=== PATIENT | male | born 1990 | race Caucasian/White ===

== ENCOUNTER 2021-05-07 16:34 | Emergency (ER) | payer SELFPAY ==
[2021-05-07 16:45] VITALS: BP 172/91; PULSE 74; RESP 20; TEMP 37.2; O2SAT 100
--- NOTE | 2021-05-07 17:14 | PC.NURSE ---
events specialist in to [facility] i [facility].
--- NOTE | 2021-05-07 17:20 | ED.WOUNDLAC ---
HPI - Wound/Laceration General Chief Complaint: Wound/Laceration Stated Complaint: spider Bite Time Seen by Provider: 05/07/21 16:51 Source: patient and RN notes reviewed Mode of arrival: ambulatory Limitations: no limitations History of Present Illness HPI narrative: Patient presents today complaining of an abscess to the right forearm x4 days. History of boils on his chest and axilla in the past. Nothing that has had to be lanced by a professional, but patient has lanced them on his own. Denies known history of MRSA. Denies recent antibiotic use. Related Data Allergies Allergy/AdvReac Type Severity Reaction Status Date / Time No Known Allergies Allergy Verified 05/07/21 16:41 Review of Systems Review of Systems: CONSTITUTIONAL: Denies body aches, fever, chills, or sweats. EYES: Denies visual changes, redness, or discharge. ENT: Denies rhinorrhea, congestion, sore throat, or otalgia. CARDIOVASCULAR: Denies chest pain, palpitations, or edema. RESPIRATORY: Denies cough or dyspnea. GASTROINTESTINAL: Denies abdominal pain, nausea, vomiting, or diarrhea. GENITOURINARY: Denies dysuria or hematuria. SKIN: Denies rash, itching. + Abscess to right forearm MUSCULOSKELETAL: Denies back pain, joint pain, or myalgia. NEUROLOGIC: Denies headache, numbness, tingling, or weakness. PSYCH: Denies depression or anxiety. PMFSH Comments At time of signature, I have reviewed and agree with nursing past medical, surgical, social and family history unless otherwise noted. Please see nursing chart for further information. There is no relevant family history pertinent to the presenting complaint Exam Narrative: GENERAL: Well-appearing, well-nourished, and in no acute distress. HEAD: Normocephalic, atraumatic. EYES: EOMI. No redness or drainage. Conjunctivae normal. ENT: Mucous membranes pink and moist. NECK: Normal AROM. CHEST: No respiratory distress. EXTREMITIES: Normal range of motion. No edema. SKIN: Warm, dry, no rash. Capillary refill normal. Normal skin turgor. 4 cm round erythematous fluctuant lesion to the right posterior forearm with tiny scab in the center. NEURO: No focal deficits. Alert and oriented x3. Gait steady. PSYCH: Normal affect. No signs of depression or anxiety. Course Vital Signs Vital signs: Vital Signs Temperature 98.9 F 05/07/21 16:45 Pulse Rate 74 05/07/21 16:45 Respiratory Rate 20 05/07/21 16:45 Blood Pressure 172/91 H 05/07/21 16:45 Pulse Oximetry 100 05/07/21 16:45 Temperature 98.9 F 05/07/21 16:45 Pulse Rate 74 05/07/21 16:45 Respiratory Rate 20 05/07/21 16:45 Blood Pressure 172/91 H 05/07/21 16:45 Pulse Oximetry 100 05/07/21 16:45 Reviewed. Pt has been instructed to follow up with his PCP regarding his elevated blood pressure today. Procedures Abscess I/D upper extremity: Date of Incision: 05/07/21 Time of Incision: 17:00 Side (if applicable): right (Forearm) Local Anesthetic: lidocaine 1% Amount of anesthesia used (mL): 2 Technique: incised with #11 blade Amount of fluid expressed (mL): 2 Irrigation: No Packing used?: none I&D Results: Pus and Blood Abcess I&D Additional Comments: dressed with telfa and coban MDM - Wound/Laceration Differential Diagnosis Differential diagnosis: Likely abscess and other (Cellulitis) Critical Care Time Critical Care Time Critical Care Time: No Discharge Plan Discharge Clinical Impression: Abscess of forearm, right Patient Disposition: Home, Self-Care Condition: Stable Instructions: Antibiotic Form, Abscess (ED), Abscess Incision and Drainage (DC) Additional Instructions: Take the Bactrim as prescribed until gone. Do not wash the arm for 24 hours to allow scab to start forming. After this do not wash with alcohol, peroxide, do not apply antibiotic ointment. Take Tylenol or ibuprofen for pain. Follow-up with your doctor if sympto
== END 2021-05-07 17:30 | disposition home or self-care (01) ==
PROVIDERS: Emergency Provider Nurse Practitioner
DX: L02.413 Cutaneous abscess of right upper limb (principal)
CPT/HCPCS: 10060; 99203; G0463

== ENCOUNTER 2021-12-28 08:48 | Emergency (ER) | payer SELFPAY ==
[2021-12-28 09:01] VITALS: BP 174/94; PULSE 85; RESP 16; TEMP 36.2; O2SAT 99
--- NOTE | 2021-12-28 09:13 | ED.SKABFB ---
HPI - Skin/Abscess/Foreign Bdy General Chief complaint: Skin/Abscess/Foreign Body Stated complaint: Bites on back of neck and chest Time Seen by Provider: 12/28/21 09:14 Source: patient Mode of arrival: ambulatory Limitations: no limitations History of Present Illness HPI narrative: 31-year-old male presented for complaint of rash to mid chest and the bottom of the hairline on the back of his neck. He states he has had intermittent episodes of this for about 4 years. He has recently been taking his friend's antibiotic approximately 1 tablet a week and endorses no improvement in symptoms. He has applied Neosporin as well. He endorses he works outside and sweats often. Denies any burning sensation but endorses the lesions are tender at times. No other sites of lesions noted. Denies nausea, vomiting, fevers or chills. MD complaint: rash Related Data Allergies Allergy/AdvReac Type Severity Reaction Status Date / Time No Known Allergies Allergy Verified 12/28/21 09:10 Review of Systems Review of Systems: CONSTITUTIONAL: Denies body aches, fever, chills, or sweats. EYES: Denies visual changes, redness, or discharge. ENT: Denies rhinorrhea, congestion, sore throat, or otalgia. CARDIOVASCULAR: Denies chest pain, palpitations, or edema. RESPIRATORY: Denies cough or dyspnea. GASTROINTESTINAL: Denies abdominal pain, nausea, vomiting, or diarrhea. GENITOURINARY: Denies dysuria or hematuria. SKIN: rash, itching, wounds. MUSCULOSKELETAL: Denies back pain, joint pain, or myalgia. NEUROLOGIC: Denies headache, numbness, tingling, or weakness. PSYCH: Denies depression or anxiety. PMFSH Comments At time of signature, I have reviewed and agree with nursing past medical, surgical, social and family history unless otherwise noted. Please see nursing chart for further information. There is no relevant family history pertinent to the presenting complaint Exam Narrative: GENERAL: Well-appearing HEAD: Normocephalic, atraumatic. EYES: conjunctivae clear, and EOMI. ENT: Mucous membranes moist. NECK: Supple. No lymphadenopathy CHEST: Clear to auscultation. No respiratory distress. HEART: Regular rate and rhythm. SKIN: Warm, dry. Patches of erythematous papules and open lesions across base of skull/hairline and mid chest; most lesions up to 0.5cm diameter, c/w folliculitis; no active drainage no abscesses; nontender NEURO: Alert and oriented x3. PSYCH: Normal mood and affect Course Course Emergency Course: Patient is aware of diagnosis, understands and agrees to treatment plan. Anticipatory guidance given. Patient agrees to follow-up as directed and is aware of reasons to seek care at the emergency department. Portions of this record may have been created with voice recognition software Level of Care: Express Care Visit Vital Signs Vital signs: Vital Signs Temperature 97.1 F L 12/28/21 09:01 Pulse Rate 85 12/28/21 09:01 Respiratory Rate 16 12/28/21 09:01 Blood Pressure 174/94 H 12/28/21 09:01 Pulse Oximetry 99 12/28/21 09:01 Oxygen Delivery Room Air 12/28/21 09:01 Temperature 97.1 F L 12/28/21 09:01 Pulse Rate 85 12/28/21 09:01 Respiratory Rate 16 12/28/21 09:01 Blood Pressure 174/94 H 12/28/21 09:01 Pulse Oximetry 99 12/28/21 09:01 Oxygen Delivery Room Air 12/28/21 09:01 Reviewed MDM - Skin/Abscess/Foreign Bdy MDM Narrative Medical decision making narrative: Does not appear at this time to be erythema multiforme, bullous, SJS, TEN; no evidence at this time to suggest RMSF, endocarditis or Lyme disease Patient looks well, nontoxic, afebrile; appropriate for initial outpatient treatment; discussed the importance of follow-up, patient agrees Instructed patient to go to nearest ER immediately for any worsening symptoms including but not limited to: fever, spreading rash, pain, sore throat, headache, dizziness, chest pain, trouble breathing, or any symptoms concerning to the patient. D
== END 2021-12-28 09:21 | disposition home or self-care (01) ==
PROVIDERS: Emergency Provider Nurse Practitioner Family
DX: L73.9 Follicular disorder, unspecified (principal)
CPT/HCPCS: 99213; G0463